=== PATIENT | male | born 1995 | race American Indian/Alaskan Native ===

== ENCOUNTER 2017-05-11 11:04 | Emergency (ER) | payer SELFPAY ==
[2017-05-11 12:39] LABS: Anion Gap 18 mmol/L; Basophils % (Auto) 0.3 % (0.0-1.8); Blood Urea Nitrogen 13 mg/dL (9-20); Calcium 9.6 mg/dL (8.4-10.2); Carbon Dioxide 24 mmol/L (22-30); Chloride 103.7 mmol/L (98-107); Eosinophils % (Auto) 1.1 % (0.0-4.3); Glucose 82 mg/dL (75-100); Hematocrit 42.6 % (35.5-45.6); Hemoglobin 14.3 gm/dl (11.8-15.2); Mean Corpuscular HGB Conc 34 % (32-34); Mean Corpuscular Hemoglobin 30 pg (28-32); Mean Corpuscular Volume 88 fl (84-94); Platelet Count 205 K/mm3 (140-440); Potassium 3.9 mmol/L (3.6-5.0); Red Blood Count 4.83 M/mm3 (3.65-5.03); Red Cell Distribution Width 13.7 % (13.2-15.2); Sodium 142 mmol/L (137-145); White Blood Count 6.2 K/mm3 (4.5-11.0)
[2017-05-11 13:02] LABS: Urine Drugs of Abuse Note Disclamer
[2017-05-11 13:14] LABS: Bilirubin,Urine NEG (Negative); Blood,Urine SM (Negative); Ketones,Urine TR mg/dL (Negative); Leukocyte Esterase,Urine TR (Negative); Mucus,Urine FEW /HPF; Nitrite,Urine NEG (Negative); Protein,Urine <15 mg/dL mg/dL (Negative); Urobilinogen,Urine < 2.0 mg/dL (<2.0)
--- NOTE | 2017-05-11 14:38 | Emergency Department Report ---
ED Psych HPI - General Chief Complaint: Psych Stated Complaint: MH EVAL Time Seen by Provider: 05/11/17 12:07 Source: patient Mode of arrival: Ambulatory - History of Present Illness MD Complaint: suicidal ideation, feels depressed -: Gradual, days(s) Associated Psychiatric Symptoms: depression, suicidal ideation History of same: No Quality: getting worse Improves With: none Worsens With: none Context: significant life stressor Associated Symptoms: denies: confusion, headache, shortness of breath, nausea, vomiting, syncope, insomnia Treatments Prior to Arrival: placed on mental he If Self Harm: admits thoughts of, has plan - Related Data Previous Rx's Medication Instructions Recorded Last Taken Type Acetaminophen/Codeine [Tylenol #3] 1 tab PO Q6H PRN #20 tab 04/10/16 Unknown Rx Ibuprofen [Motrin] 600 mg PO Q8H PRN #40 tablet 04/10/16 Unknown Rx Allergies Allergy/AdvReac Type Severity Reaction Status Date / Time No Known Allergies Allergy Unverified 04/10/16 10:44 ED Review of Systems ROS: Stated complaint: EVAL Other details as noted in HPI Other: GENERAL: No weight change, fatigue, weakness, fever, chills, or night sweats SKIN: No changes in skin or hair, no itching, no rashes, no jaundice HEAD: No trauma, headache, or visual changes EYES: No blurriness, tearing, itching, acute visual loss, conjunctival discoloration, or scleral icterus EARS: No hearing loss, tinnitus, vertigo, or earache NOSE: No rhinorrhea, stuffiness, sneezing, itching, or epistaxis MOUTH: No bleeding gums, hoarseness, sore throat, or swelling CARDIAC: No new murmur, chest pain, palpitations, dyspnea on exertion, orthopnea , PND, or edema RESPIRATORY: No shortness of breath, wheeze, cough, sputum production, hemoptysis, pneumonia, asthma, bronchitis, or emphysema GI: No change in appetite, nausea, vomiting, dysphagia, change in bowel frequency, diarrhea, constipation, bleeding, hematemesis, melena, hematochezia, or abdominal pain URINARY: No frequency, urgency, polyuria, dysuria, hematuria, or incontinence MUSCULOSKELETAL: No muscle weakness, joint stiffness, decrease in range of motion, redness, swelling, tenderness NEUROLOGIC: No loss of sensation, numbness, tingling, tremors, weakness, paralysis, seizures HEMATOLOGIC: No anemia, easy bruising, bleeding, petechiae, or purpura ENDOCRINE: No hot or cold intolerance, sweating, polyuria, polydipsia or, polyphagia no thyroid problems PSYCHIATRIC: Depression, positive SI ED Past Medical Hx - Past Medical History Previous Medical History?: No - Surgical History Past Surgical History?: No - Social History Smoking Status: Never Smoker Substance Use Type: None - Medications Home Medications: Home Medications Medication Instructions Recorded Confirmed Last Taken Type Acetaminophen/Codeine [Tylenol #3] 1 tab PO Q6H PRN #20 tab 04/10/16 Unknown Rx Ibuprofen [Motrin] 600 mg PO Q8H PRN #40 tablet 04/10/16 Unknown Rx ED Physical Exam - General Limitations: No Limitations - Other Other exam information: GENERAL: Patient in no acute distress HEAD: Normocephalic, atraumatic EYES: PERRLA, EOM intact, no scleral icterus, no conjunctival hemorrhage, visual conteh and acuity wnl, NOSE: No tenderness, discharge, sinus tenderness MOUTH: No erythema, bleeding, exudate HEART: Regular rate and rhythm, no murmur, S1-S2 are auscultated, pulses are symmetric LUNGS: No wheezing, rales, rhonchi, bilateral breath sounds ABDOMEN: Normal bowel sounds, no tenderness, no rebound, no guarding, no masses , no CVA tenderness MUSCULOSKELETAL: Normal joint range of motion, no redness, no swelling, no tenderness NEUROLOGIC: GCS 15, Alert and Oriented x3, Cranial nerves intact, normal sensation, normal strength, normal gait, no cerebellar deficit PSYCHIATRIC: Positive SI, No homicidal ideation, no hallucinations SKIN: Skin is warm and dry, no wounds, no rashes ED Course Vital Signs 05/11/17 05/11/17 11:44 13:15 Temperature 98.6 F Pulse Rate 65 Respiratory 20 18 Rate Blood Pressure 134/95 O2 Sat by Pulse 100 Oximetry ED Medical Decision Making - Lab Data Result diagrams: 05/11/17 12:09 05/11/17 12:09 - Medical Decision Making Patient medically clear for transfer Critical care attestation.: If time is entered above; I have spent that time in minutes in the direct care of this critically ill patient, excluding procedure time. ED Disposition Clinical Impression: Suicidal ideation Depression Qualifiers: Depression Type: unspecified Qualified Code(s): F32.9 - Major depressive disorder, single episode, unspecified Disposition: [id number]/TX-[id number] ANOTHER TYPE HLTHCARE Is pt being admited?: No Condition: Stable Referrals: PRIMARY CARE, [Primary Care Provider] - 3-5 Days Time of Disposition: 14:38
--- NOTE | 2017-05-12 12:13 | Consultation ---
History of Present Illness - Reason for Consult Reason for consult: depression and anger Medications and Allergies Allergies Allergy/AdvReac Type Severity Reaction Status Date / Time No Known Allergies Allergy Unverified 04/10/16 10:44 Home Medications Medication Instructions Recorded Confirmed Last Taken Type Acetaminophen/Codeine [Tylenol #3] 1 tab PO Q6H PRN #20 tab 04/10/16 Unknown Rx Ibuprofen [Motrin] 600 mg PO Q8H PRN #40 tablet 04/10/16 Unknown Rx Mental Status Exam - Vital signs Last Vital Signs Temp 98.7 F 05/11/17 20:30 Pulse 72 05/11/17 20:30 Resp 18 05/11/17 20:30 BP 121/78 05/11/17 20:30 Pulse Ox 100 05/11/17 20:30 Results Result Diagrams: 05/11/17 12:09 05/11/17 12:09 Abnormal lab results 05/11/17 Range/Units 12:09 Lymph % (Auto) 41.2 H (13.4-35.0) % Stanley % (Auto) 9.4 H (0.0-7.3) % All other labs normal. Assessment and Plan Assessment and plan: CHIEF COMPLAINT IN PATIENTS WORDS: HISTORY OF PRESENT ILLNESS REQUIRING ADMISSION TO INPATIENT LEVEL OF CARE: (Describe the onset of Illness, Intensity of Symptoms, and Circumstances Leading to Admission) This is a 21 year-old domiciled male who reports no formal PPH now presenting due to recent expression of suicidal thoughts related to his psychosocial stressors. On examination, he was conversant and furnished the reports of him having increasing symptoms over the past several days. Patient reports that he is not currently under treatment and he has been having thoughts about and dying most notably shooting himself. Patient notes that he's been in and out of skilled nursing for the past year due to several social stressors. PSYCHIATRIC REVIEW OF SYSTEMS: Substance: none noted Depression: Some sleep difficulties, and mood lability Chantell: Labile moods Psychosis: No psychosis noted Anxiety/ OCD/ PTSD: Some periodic anxiety noted Suicidality: denies SI Other Self-Injurious Behavior: none currently, no SIB noted recently Violent/ Aggressive Behavior: Recent aggression at the intermediate CURRENT MEDICATIONS: ( Psychiatric and Non-psychiatric ) None ALLERGIES: NKDA PAST PSYCHIATRIC HISTORY: ( Prior Treatment, Precipitating Factors, Diagnosis, and Course of Treatment ) Inpatient: None Outpatient: None Prior Suicide Attempts: None Prior Self-Injurious Behaviors: None PAST PSYCHIATRIC MEDICATION TRIALS: None MEDICAL HISTORY: (Chronic and Acute Illnesses, Current Medical Treatment, Recent Hospitalizations) Denies Detoxification / Withdrawal: none noted MENTAL STATUS EXAM: General Appearance: Dressed in hospital gown Sensorium/Consciousness: alert and responding to external stimuli Eye Contact: limited Attitude / Behavior: cooperative Psychomotor & Musculoskeletal Activity: WNL Mood: Better Affect: Constricted Speech / Language: WNL Thought Processes: Mostly organized Thought Content: Passive SI, no HI Perception: No psychosis Orientation: person, place, time and situation Judgment What would you do if you smelled smoke in a crowded movie theater?: poor/impulsive Insight: poor Intelligence Vocabulary, general fund of knowledge, educational level: Average Capacity of ADLs: Independent STRENGTHS: PSYCHOSOCIAL AND ENVIRONMENTAL STRESSORS: ADMITTING DIAGNOSES Psychiatric: Unspecified episodic mood disorder Evidence for the following: Rule out bipolar disorder Medical: n/a INITIAL PLAN OF CARE AND TREATMENT GOALS: Start Depakote ER 500 mg every 12 hours Refer to inpatient psychiatric hospital for further assessment and treatment
[2017-05-12] MEDS ORDERED: KETALAR ONE (16:13)
--- NOTE | 2017-05-14 00:47 | Progress Note ---
Subjective - Reason for Consult Consult date: 05/13/17 Reason for consult: follow up Mental Status Exam - Vital signs Last Vital Signs Temp 99.1 F 05/13/17 22:00 Pulse 82 05/13/17 22:00 Resp 16 05/13/17 22:00 BP 120/78 05/13/17 22:00 Pulse Ox 98 05/13/17 22:00 Assessment and Plan This is a 21 year-old domiciled male who presented to the ER 05/11/17 for depression, SI about shooting himself. He states he is the same as when he arrived in the ER and his idea of help is not lying in bed in the ER. Detoxification / Withdrawal: none noted MENTAL STATUS EXAM: General Appearance: Dressed in hospital gown Sensorium/Consciousness: alert and responding to external stimuli Eye Contact: limited Attitude / Behavior: cooperative Psychomotor & Musculoskeletal Activity: WNL Mood: Better Affect: Constricted Speech / Language: WNL Thought Processes: organized Thought Content: Passive SI, no HI Perception: No psychosis Orientation: person, place, time and situation Judgment poor/impulsive Insight: poor Intelligence Vocabulary, general fund of knowledge, educational level: Average Capacity of ADLs: Independent Impression: Unspecified episodic mood disorder Recommendations: Continue Depakote ER 500 mg every 12 hours Refer to inpatient psychiatric hospital for further assessment and treatment
--- NOTE | 2017-05-14 10:09 | Progress Note ---
Subjective - Reason for Consult Reason for consult: evaluate and manage symptoms of a mood disorder Mental Status Exam - Vital signs Last Vital Signs Temp 98.4 F 05/14/17 07:55 Pulse 72 05/14/17 07:55 Resp 16 05/14/17 07:55 BP 119/73 05/14/17 07:55 Pulse Ox 98 05/14/17 07:55 Assessment and Plan On clinical examination, patient was asleep in his bed. He was easily arousable from sleep. Patient continued to note that he would like some help with his depression and anger. It appears that he has been accepted to the hospital and is awaiting transport there. Furthermore, patient notes that he has not been taking his Depakote as he does not want take the medication due to symptoms or side effects of headache. Patient was informed that it was his choice to adhere not here to treatment. MENTAL STATUS EXAM: General Appearance: Dressed in hospital gown Sensorium/Consciousness: alert and responding to external stimuli Eye Contact: limited Attitude / Behavior: cooperative Psychomotor & Musculoskeletal Activity: WNL Mood: Better Affect: Constricted Speech / Language: WNL Thought Processes: Mostly organized Thought Content: Passive SI, no HI Perception: No psychosis Orientation: person, place, time and situation Judgment What would you do if you smelled smoke in a crowded movie theater?: poor/impulsive Insight: poor Intelligence Vocabulary, general fund of knowledge, educational level: Average Capacity of ADLs: Independent INITIAL PLAN OF CARE AND TREATMENT GOALS: Patient currently not taking Depakote, I will continue to be ordered and patient can refuse if he does not want medication It appears the patient has been accepted to inpatient facility and is awaiting transportation
--- NOTE | 2017-05-15 10:14 | Progress Note ---
Subjective - Reason for Consult Consult date: 05/15/17 Reason for consult: Psychiatry Follow-up - Chief Complaint Chief complaint: "Can I go home" 21 y.o. AA male presenting to [facility] for SI's and depression. Today patient is calm and cooperative during assessment. He stated that he feel a little better, but still want help for his social stressors (unemployed, getting into fights, and lack of money). He stated going to snf over the past year gas been a major issue for him and he wants to correct that. He stated that he has gone day without sleep. He denies SI/HI's, AVH's, but stated feeling down about life. He stated that the Depakote give him headaches. Patient would prefer to take another medication. Mental Status Exam - Vital signs Last Vital Signs Temp 98.4 F 05/15/17 08:23 Pulse 81 05/15/17 08:23 Resp 20 05/15/17 08:23 BP 126/76 05/15/17 08:23 Pulse Ox 96 05/15/17 08:23 - Exam Narrative exam: MSE: Appearance: calm, cooperative Behavior: good eye contact Speech: regular rate and tone Mood: "fell down" Affect: congruent to mood Thought Process: circumstantial Thought Content: denies SI/HI's and AVH's Motor Activity: ambulatory Cognition: A/Ox 3 Insight: poor Judgment: limited Assessment and Plan Impression: Unspecified Mood DO. Today patient is calm and cooperative during assessment. He stated that he feel a little better, but still want help for his social stressors (unemployed, getting into fights, and lack of money). Patient refused last administration of Depakote. Recommendation/Plan: Continue 1013 with pending placement to [facility] ( awaiting transport time). Start Abilify 5 mg PO Daily for mood and Cogentin 0.5 mg PO daily for EPS prevention. Discussed possible metabolic side effects of Abilify.
[2017-05-15] MEDS ORDERED: DECADRON ONE (15:56)
[2017-05-15] MEDS ORDERED: ATIVAN ONE (15:56)
[2017-05-15] MEDS ORDERED: PEPCID IV ONE (15:56)
[2017-05-15] MEDS ORDERED: BENADRYL ONE (16:09)
[2017-05-15] MEDS ORDERED: MAGNESIUM SULFATE 2GM/50ML 2 GM/50 ML BAG IV ONE (16:11)
--- NOTE | 2017-05-16 09:50 | Progress Note ---
Subjective - Reason for Consult Consult date: 05/16/17 Reason for consult: Psychiatry Follow-up - Chief Complaint Chief complaint: "Will I go to another place" 21 y.o. AA male presenting to [facility] for SI's and depression. Today patient is calm, cooperative but disorganized during assessment. He stated he wants help with his anger issues. Per his mother Luz Mares [phone], the patient 's mood has been "up and down" for a while. She stated that he would be up for days without sleep. She feels that her son needs treatment for stabilization. She stated that he does not have a hx of recreational drug use and alcohol consumption (etoh). Patient denies SI/HI's, AVH's, and depression symptoms. Again, he is adamant about getting help for his mental instability. Mental Status Exam - Vital signs Last Vital Signs Temp 98.7 F 05/15/17 20:00 Pulse 75 05/15/17 20:00 Resp 17 05/15/17 20:00 BP 128/74 05/15/17 20:00 Pulse Ox 99 05/15/17 20:00 - Exam Narrative exam: MSE: Appearance: calm, cooperative Behavior: good eye contact Speech: regular rate and tone Mood: "a little better" Affect: congruent to mood Thought Process: circumstantial Thought Content: denies SI/HI's and AVH's, disorganized Motor Activity: ambulatory Cognition: A/Ox 3 Insight: limited Judgment: limited Assessment and Plan Impression: Unspecified Mood DO. Today patient is calm, cooperative but disorganized during assessment. He stated he wants help with his anger issues. Per his mother Luz Mares [phone], the patient mood's has been "up and down" for a while. Patient denies headache today. Recommendation/Plan: Continue 1013 with pending placement to [facility] ( awaiting transport time). Continue Abilify 5 mg PO Daily for mood and Cogentin 0.5 mg PO daily for EPS prevention. Discussed possible metabolic side effects of Abilify.
[2017-05-16] MEDS ORDERED: ABILIFY PO SCH (10:00)
[2017-05-16] MEDS ORDERED: COGENTIN PO SCH (10:00)
[2017-05-16 10:12] VITALS: BP 104/73
== END 2017-05-16 18:28 | disposition other institution (70) ==
LOC: ED 11:04 → EEVIPCON 11:04 → ED 05-16 18:28
DX: F32.9 Major depressive disorder, single episode, unspecified (principal); R45.851 Suicidal ideations
CPT/HCPCS: 36415; 80048; 80307; 81001; 85025; 99285; G0480; 80320; J1100; J1200; J2060; J3475